=== PATIENT | female | born 1980 | race Caucasian/White ===

== ENCOUNTER 2019-03-15 09:16 | Outpatient (CLI) | payer BC ==
--- NOTE | 2019-03-15 11:49 | MRI ---
MRI LEFT SHOULDER WITHOUT CONTRAST: INDICATIONS: Left shoulder injury while lifting her child in July with continued pain since then. This has progress ively worsened since the initial injury. FINDINGS: There is a low grade partial-thickness articular surface tear involving 50% of the tendon thickness o f the mid to posterior infraspinatus, best seen on image 9 of series 7 and on image 14 of series 4. A small amount of fluid is seen within the subacromial/subdeltoid space. Biceps anchor complex and sup erior glenoid labrum are intact. The inferior glenohumeral labral ligamentous complex is intact. The biceps tendon is located. The glenohumeral articular surface is normal appearing. No muscular atrophy is evident. The AC joint demonstrates mild joint hypertrophy. No lymphadenopathy is evident. IMPRESSION: 1. Low grade partial-thickness articular surface tear involving the posterior infraspinatus at t he footprint, involving approximately 50% of the tendon thickness. For improved characterization a fo llow-up MR arthrogram of the left shoulder may be helpful. 2. Mild acromioclavicular joint osteoarthrosis. POS: [facility]
== END 2019-03-15 09:17 | disposition home or self-care (01) ==
LOC: SCSMRI 09:16
PROVIDERS: ATTEND Orthopaedic Surgery
DX: S46.012A Strain of muscle(s) and tendon(s) of the rotator cuff of left shoulder, initial encounter (principal); M19.012 Primary osteoarthritis, left shoulder; S46.812A Strain of other muscles, fascia and tendons at shoulder and upper arm level, left arm, initial encounter

== ENCOUNTER 2020-02-17 10:49 | Outpatient (CLI) | payer BC ==
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
== END 2020-02-17 10:50 | disposition home or self-care (01) ==
LOC: SCSRAD 10:49
PROVIDERS: ATTEND Family Medicine
DX: M79.642 Pain in left hand (principal)